=== PATIENT | male | born 1965 | race Caucasian/White ===

== ENCOUNTER 2017-06-16 17:36 | Emergency (ER) | payer OTHER ==
[~2017-06-16] VITALS: Ht 193 cm; Wt 131.1 kg
[2017-06-16] MEDS ORDERED: SIMVASTATIN40 MG PO (17:48)
[2017-06-16] MEDS ORDERED: LOSARTAN POTASS25 M1 PO (17:49)
[2017-06-16] MEDS ORDERED: GLIMEPIRIDE4 M1 PO (17:49)
[2017-06-16] MEDS ORDERED: METFORMIN HCL1000 MG PO (17:49)
[2017-06-16] MEDS ORDERED: PANTOPRAZOLE SO40 MG PO (17:49)
[2017-06-16 18:25] LABS: BASO # 0.1 10*3/uL (0.0-0.1); BASO % 1.1 % (0.0-1.0); EOS # 0.2 10*3/uL (0.0-0.4); EOS % 3.3 % (1.0-4.0); HEMATOCRIT 41.7 % (42.0-52.0); HEMOGLOBIN 14.8 g/dl (14.0-18.0); LYMPH # 1.8 10*3/uL (1.3-4.4); LYMPH % 32.2 % (27.0-41.0); MEAN CELL VOLUME 85.6 fl (80.0-94.0); MEAN CORPUSCULAR HGB 30.4 pg (27.0-31.0); MEAN CORPUSCULAR HGB CONC 35.5 g/dl (33.0-37.0); MEAN PLATELET VOLUME 9.8 fl (9.6-12.3); MONO # 0.5 10*3/uL (0.1-1.0); MONO % 8.8 % (3.0-9.0); NEUT % 53.9 % (47.0-73.0); PLATELET COUNT AUTOMATED 178 10*3/uL (130-400); RED BLOOD COUNT 4.87 10*6/uL (4.50-5.90); RED CELL DISTRI WIDTH 12.8 % (0-14.5); WHITE BLOOD COUNT 5.5 10*3/uL (4.8-10.8)
[2017-06-16 18:42] LABS: ALBUMIN 4.1 gm/dl (3.1-4.5); ALKALINE PHOSPHATASE 52 U/L (45-117); BILIRUBIN, TOTAL 0.5 mg/dl (0.2-1.0); BUN 14 mg/dl (7-24); CARBON DIOXIDE 29 mmol/L (21-32); CHLORIDE 100 mmol/L (98-107); EST GLOM FILT AFRICAN AMERICAN > 60 ml/min; GLUCOSE 288 mg/dL (65-99); POTASSIUM 4.5 mmol/L (3.5-5.1); SGOT/AST 30 IU/L (3-35); SGPT/ALT 55 U/L (12-78); SODIUM 138 mmol/L (136-145); TOTAL PROTEIN 7.6 gm/dL (6.4-8.2)
[2017-06-16] MEDS ORDERED: BACTRIM DS 8001 TA1 PO (19:11)
[2017-06-16] MEDS ORDERED: ZOFRAN4 MG PO (19:11)
[2017-06-16] MEDS ORDERED: PERCOCET 325 MG1 TA2 PO (19:11)
[2017-06-16] MEDS ORDERED: FLOMAX0.4 MG PO (19:11)
[2017-06-16 19:33] LABS: BILIRUBIN NEGATIVE (NEGATIVE); BLOOD 3+ (NEGATIVE); CLARITY SL CLOUDY (CLEAR); COLOR YELLOW (YELLOW); GLUCOSE 3+ (NEGATIVE); KETONE TRACE (NEGATIVE); LEUKO ESTERASE NEGATIVE (NEGATIVE); NITRITE NEGATIVE (NEGATIVE); PROTEIN NEGATIVE (NEGATIVE); SPECIFIC GRAVITY 1.025 (1.005-1.030); UROBILINOGEN 0.2 E.U./dl (0.2-1.0)
[2017-06-16 19:45] LABS: BACTERIA TRACE; RBC TNTC rbc/hpf (0-2); URINE REFLEX COMMENT YES (NO); WBC 0-2 wbc/hpf (0-5)
== END 2017-06-16 19:19 | disposition home or self-care (01) ==
LOC: ED 17:36
PROVIDERS: Nurse Practitioner Family
DX: K80.20 Calculus of gallbladder without cholecystitis without obstruction (principal); N20.0 Calculus of kidney; R03.0 Elevated blood-pressure reading, without diagnosis of hypertension; N13.30 Unspecified hydronephrosis; Z88.0 Allergy status to penicillin

== ENCOUNTER 2017-06-18 00:21 | Emergency (ER) | payer OTHER ==
[~2017-06-18] VITALS: Ht 193 cm; Wt 131.1 kg
[~2017-06-18 00:21] MED LIST: BACTRIM DS 8001 TA1 PO; FLOMAX0.4 MG PO; GLIMEPIRIDE4 M1 PO; LOSARTAN POTASS25 M1 PO; METFORMIN HCL1000 MG PO; PANTOPRAZOLE SO40 MG PO; PERCOCET 325 MG1 TA2 PO; SIMVASTATIN40 MG PO; ZOFRAN4 MG PO
== END 2017-06-18 01:45 | disposition home or self-care (01) ==
LOC: ED 00:21
DX: N23 Unspecified renal colic (principal); R10.30 Lower abdominal pain, unspecified; Z88.0 Allergy status to penicillin; Z91.040 Latex allergy status; Z79.899 Other long term (current) drug therapy

== ENCOUNTER 2017-06-19 22:26 | Emergency (ER) | payer OTHER ==
[~2017-06-19] VITALS: Ht 193 cm; Wt 131.5 kg
[2017-06-19 22:34] VITALS: BP 144/98
[2017-06-19 23:24] LABS: BASO # 0.1 10*3/uL (0.0-0.1); BASO % 0.7 % (0.0-1.0); EOS # 0.1 10*3/uL (0.0-0.4); EOS % 0.7 % (1.0-4.0); HEMATOCRIT 37.4 % (42.0-52.0); HEMOGLOBIN 12.9 g/dl (14.0-18.0); IG # 0.1 10*3/uL (0.0-0.1); LYMPH # 1.2 10*3/uL (1.3-4.4); LYMPH % 16.1 % (27.0-41.0); MEAN CORPUSCULAR HGB CONC 34.5 g/dl (33.0-37.0); MEAN PLATELET VOLUME 9.6 fl (9.6-12.3); MONO # 0.7 10*3/uL (0.1-1.0); MONO % 9.7 % (3.0-9.0); NEUT # 5.3 10*3/uL (2.3-7.9); PLATELET COUNT AUTOMATED 156 10*3/uL (130-400); RED CELL DISTRI WIDTH 13.1 % (0-14.5); WHITE BLOOD COUNT 7.3 10*3/uL (4.8-10.8)
[2017-06-19 23:35] LABS: BUN 19 mg/dl (7-24); C-REACTIVE PROTEIN 0.85 MG/DL (0-0.3); CARBON DIOXIDE 26 mmol/L (21-32); CHLORIDE 101 mmol/L (98-107); EST GLOM FILT AFRICAN AMERICAN > 60 ml/min; GLUCOSE 279 mg/dL (65-99); POTASSIUM 3.3 mmol/L (3.5-5.1); SODIUM 137 mmol/L (136-145)
[2017-06-20] MEDS ORDERED: KETOROLAC10 MG PO (00:48)
[2017-06-20] MEDS ORDERED: PREDNISONE20 M1 PO (00:48)
== END 2017-06-20 02:04 | disposition home or self-care (01) ==
LOC: ED 22:26
PROVIDERS: Emergency Medicine Emergency Medical Services
DX: N13.2 Hydronephrosis with renal and ureteral calculous obstruction (principal); N23 Unspecified renal colic; Z88.0 Allergy status to penicillin; Z91.040 Latex allergy status; Z79.899 Other long term (current) drug therapy

== ENCOUNTER → 2019-11-24 | Outpatient (CLI) | payer OTHER ==
[~2019-11-24] MED LIST changes: +KETOROLAC10 MG PO; +PREDNISONE20 M1 PO
[2019-11-24 11:26] LABS: ALKALINE PHOSPHATASE 52 U/L (45-117); BUN 14 mg/dl (7-24); CHLORIDE 102 mmol/L (98-107); POTASSIUM 3.4 mmol/L (3.5-5.1); SGOT/AST 15 IU/L (3-35); SGPT/ALT 41 U/L (12-78); SODIUM 139 mmol/L (136-145); TOTAL PROTEIN 7.2 gm/dL (6.4-8.2)
== END | disposition home or self-care (01) ==
LOC: LAB 10:05
PROVIDERS: Orthopaedic Surgery
DX: E11.9 Type 2 diabetes mellitus without complications (principal); Z79.1 Long term (current) use of non-steroidal anti-inflammatories (NSAID)

== ENCOUNTER 2025-04-16 22:47 | Emergency (ER) | payer OTHER ==
[~2025-04-16] VITALS: Ht 193 cm; Wt 120.2 kg
[2025-04-16 23:02] VITALS: BP 130/70
[2025-04-16] MEDS ORDERED: Tdap Vaccine 0.5 ML SYR (Adult Vaccine) IM ONE (23:10)
== END 2025-04-17 00:29 | disposition home or self-care (01) ==
LOC: ED 22:47
DX: S91.115A Laceration without foreign body of left lesser toe(s) without damage to nail, initial encounter (principal); S90.32XA Contusion of left foot, initial encounter; Z88.0 Allergy status to penicillin; Z79.899 Other long term (current) drug therapy; W22.8XXA Striking against or struck by other objects, initial encounter; Y93.89 Activity, other specified; Y92.89 Other specified places as the place of occurrence of the external cause; Y99.8 Other external cause status